=== PATIENT | female | born 1980 | race Caucasian/White ===

== ENCOUNTER 2021-04-22 10:27 | Emergency (ER) | payer MEDICARE, MEDICAID, SELFPAY | END 2021-04-22 11:19 | disposition left against medical advice (07) | PROVIDERS: Emergency Provider Emergency Medicine; PCP Internal Medicine | DX: K59.00 Constipation, unspecified (principal) ==

== ENCOUNTER 2021-04-22 12:07 | Emergency (ER) | payer MEDICARE, MEDICAID, SELFPAY ==
--- NOTE | ~2021-04-22 | CT_ITS ---
EXAMINATION: CT ABDOMEN AND PELVIS WITH CONTRAST CLINICAL INFORMATION: Lower abdominal pain. No bowel movement for 7 days COMPARISON: None TECHNIQUE: Multidetector volumetric images were obtained from the superior aspect of the liver through the pubic symphysis following administration 85 mL of Omnipaque 350 intravenous contrast. Sagittal and coronal reformatted images were obtained on the technologist's workstation. Oral contrast: No This CT examination was performed using dose optimization techniques as appropriate, variously including the following: *Automated exposure control *Adjustment of mA and/or kV according to patient size (this includes techniques or standardized protocols for targeted exams where dose is matched to indication/reason for exam; i.e. extremities or head) *Use of iterative reconstruction technique DLP: 819 mGy-cm FINDINGS: LUNG BASES: The visualized lung bases are unremarkable. LIVER, GALLBLADDER, AND BILIARY TREE: The liver is normal in size, shape, and attenuation. No focal hepatic lesion or biliary ductal dilatation is present. The gallbladder is unremarkable with no evidence of radiopaque gallstones, gallbladder wall thickening, or obvious pericholecystic inflammatory changes. PANCREAS: Unremarkable. SPLEEN: Borderline splenomegaly, measuring 13.4 cm anterior to posterior but only 11.4 cm craniocaudal. ADRENAL GLANDS: Unremarkable. KIDNEYS AND URETERS: The kidneys are normal in size, shape, and attenuation. No hydronephrosis, hydroureter, or calculi seen. No perinephric stranding. BLADDER: Unremarkable. GASTROINTESTINAL TRACT: Stomach and small bowel are nondilated. Normal appendix. Moderate volume of stool in the right colon, left colon, and sigmoid colon. Large rectal stool ball with rectal wall thickening and presacral fluid and fat stranding suggesting fecal impaction and stercoral colitis. ABDOMINAL WALL: Small fat-containing umbilical hernia. LYMPH NODES: Normal. VASCULAR: Unremarkable. PELVIC VISCERA: IUD in the uterus. No adnexal mass. OSSEOUS STRUCTURES: Unremarkable. CT/CT abdomen pelvis w con IMPRESSION: Large rectal stool ball with rectal wall thickening and presacral fluid and fat stranding consistent with fecal impaction and stercoral colitis. Borderline splenomegaly. Fleischner guidelines were followed.
[2021-04-22 14:03] VITALS: BP 126/56; PULSE 85; RESP 18; TEMP 36.2; O2SAT 98; BMI 31.9
--- NOTE | 2021-04-22 15:08 | ED.GENADULT ---
HPI - General Adult General Chief complaint: General Medical Stated complaint: constipation Time Seen by Provider: 04/22/21 14:42 Source: patient Mode of arrival: ambulatory Limitations: no limitations History of Present Illness HPI narrative: 40-year-old female presents for constipation. States she has IBS, and has not had a bowel movement for 7 days. States she has abdominal pain. She has tried to clocks, MiraLax, suppositories, improved use, and she has not been able to have a bowel movement. In the past she has had to be manually disimpacted. No fevers, no nausea, vomiting, diarrhea. Patient sees GI for constipation and IBS abdomen are see hospital. She is vaccinated for COVID. No dysuria, urinary urgency or frequency, no pelvic pain, no pelvic discharge or bleeding. Patient has an IUD and does not get her periods. She is sexually active Patient asked me repeatedly if she can get a work note for today Related Data Previous Rx's Medication Instructions Recorded polyethylene glycol 3350 17 gram 17 g PO BID #100 ea 04/22/21 oral powder packet (Miralax) Allergies Allergy/AdvReac Type Severity Reaction Status Date / Time No Known Allergies Allergy Verified 04/22/21 14:02 [No Known Allergies*] Review of Systems Constitutional: Constitutional: Denies body ache(s), Denies chills, Denies fatigue, Denies fever(s), Denies headache(s), Denies malaise and Denies weakness Eyes: Eyes: Denies diplopia ENT: Denies vertigo, Denies dizziness, Denies otalgia, Denies headache(s), Denies mouth pain, Denies post nasal drip, Denies sinus pain, Denies sinus pressure, Denies sore throat and Denies throat swelling Cardiovascular: Cardiovascular: Denies chest pain, Denies syncope, Denies leg edema, Denies lightheadedness, Denies Loss of Consciousness, Denies palpitations and Denies dyspnea Respiratory: Respiratory: Denies chest congestion, Denies cough and Denies dyspnea Gastrointestinal: Gastrointestinal: Reports abdominal pain, Denies hematochezia, Reports constipation, Denies diarrhea, Denies nausea and Denies vomiting Genitourinary: Genitourinary: Reports no additional female genitourinary complaints Musculoskeletal: Musculoskeletal: Reports no additional musculoskeletal complaints Neurologic: Denies confusion, Denies vertigo, Denies dizziness, Denies syncope, Denies headache(s) and Denies weakness Psychiatric: Psychiatric: Denies anxiety, Denies confusion and Denies depression Endocrine: Endocrine: Denies fatigue and Denies palpitations Allergic/Immunologic: Allergic/Immunologic: Denies throat swelling PMFSH Social History Social History Advance Directives: Yes Advance Directives Information Provided: Yes Advance Directives on File: No Physical Exam Vital Signs: Vital Signs: Last Vital Signs Temp 97.7 F 04/22/21 17:49 Pulse 83 04/22/21 17:49 Resp 20 04/22/21 17:49 BP 115/67 04/22/21 17:49 Pulse Ox 97 04/22/21 17:49 BMI result Body Mass Index 31.9 Const: General: No confusion Nutritional Appearance: well nourished Orientation/consciousness: No confusion Limitations: no limitations Eyes: Conjunctivae: conjunctivae normal Pupils: Equal, round and reactive pupils present EOM: EOMs intact bilaterally Neck: Neck: Yes full ROM, Yes no lymphadenopathy and Yes supple Resp: Effort & Inspection: normal respiratory effort and able to speak in complete sentences Auscultation: clear to auscultation bilaterally, no crackles, no rales, no rhonchi and no wheezes Cardio: Rate: regular rate Rhythm: regular rhythm Heart sounds: S1 normal heart sound present and S2 normal heart sound present GI: Inspection: Yes distended and Yes obesity Palpation (GI): Soft to palpation, Tenderness to palpation present (GI) in the LLQ and in the RLQ and Guarding due to palpation present (GI) in the LLQ and in the RLQ Rectal Exam - Female: visual inspection normal, normal sphincter tone, fecal impaction, No Lesions present (GI), No Anal fissure(s) present and No hemorrhoids Skin: General skin exam: no rashes or lesions noted Neuro: General: No confusion Cranial nerves: Yes Equal, round and reactive pupils present Extrem: General: Yes normal to inspection and Yes full ROM Psych: Appearance: grossly normal Affect: Anxious affect present Attitude: cooperative Thought process: Normal thought process present Course Course Course Narrative: 40-year-old female presents for 7 days of abdominal pain and constipation. No fevers. On exam, patient is stable vitals, she is anxious, she is tender and guarding in her lower abdomen. Will get labs, urine, will CT patient's abdomen to rule out any worsening pathology and evaluate her constipation. Gave morphine, fluids, Zofran Reevaluation(s) Reevaluation #1: Labs are unremarkable, on rectal exam, patient has some stool in her rectal vault. I did a manual disimpaction: Stool is soft, light brown, I am able to remove about 2 tbsp with my finger. Will give lactulose, senna, Fleet enema, re-evaluate Reevaluation #2: And a after senna and lactulose, patient felt she had to have a bowel movement, but was unable to. Patient would like to defer a Fleet enema for now. Reevaluation #3: CT/CT abdomen pelvis w con IMPRESSION: Large rectal stool ball with rectal wall thickening and presacral fluid and fat stranding consistent with fecal impaction and stercoral colitis. ? Borderline splenomegaly.? Discussed with Dr Laboy, suggested to give mag citrate, ducolax, and fleet enema. If she is able to stool, will send home on Miralax Signed pt out to [facility], pending a bowel movement. Medical Decision Making Lab Data Result diagrams: 04/22/21 16:35 04/22/21 16:35 Labs: Lab Results 04/22/21 04/22/21 Range/Units 16:35 16:35 WBC 7.6 (4.8-10.8) X10*3/uL RBC 4.91 (4.20-5.50) X10*6/uL Hgb 14.0 (12.0-16.0) g/dl Hct 42.5 (37.0-47.0) % MCV 86.6 (80.0-98.0) fL MCH 28.5 (27.0-33.0) pg MCHC 32.9 (31.0-35.0) g/dl RDW 12.9 (11.0-16.0) % Plt Count 262 (160-400) X10*3/uL MPV 10.4 (9.4-12.3) fL Immature Gran % (Auto) 0.7 H (0.0-0.4) % Neut % (Auto) 69.9 (45-73) % Lymph % (Auto) 22.4 (20-40) % [place] % (Auto) 5.8 (2-11) % Eos % (Auto) 0.9 (0-4) % Baso % (Auto) 0.3 (0-2) % Lymph # (Auto) 1.7 (1.2-4.9) X10*3/uL [place] # (Auto) 0.4 (0.1-1.2) X10*3/uL Eos # (Auto) 0.1 (0.0-0.4) X10*3/uL Baso # (Auto) 0.0 (0.0-0.2) X10*3/uL Abs Immat Gran (auto) 0.05 H (0.00-0.03) X10*3/uL Absolute Neuts (auto) 5.3 (2.0-8.3) x10*3/uL Absolute Nucleated RBC 0.000 (0.0-0.012) X10*3/uL Nucleated RBC % (auto) 0.0 (0.0-0.2) /100WBC Sodium 139 (135-145) mmol/L Potassium 3.5 (3.3-5.1) mmol/L Chloride 108 (96-108) mmol/L Carbon Dioxide 25 (22-29) mmol/L Anion Gap 10 L (12-20) BUN 10 (9-16) mg/dL Creatinine 0.76 (0.5-1.4) mg/dL Estim Creat Clear Calc 108.3 Estimated GFR > 60 Random Glucose 86 (60-115) mg/dL Calcium 8.9 (8.4-10.2) mg/dL Total Bilirubin 0.6 (0.0-1.0) mg/dL AST 15 (5-31) U/L ALT 17 (0-31) U/L Alkaline Phosphatase 62 (39-117) U/L Total Protein 7.1 (6.5-8.0) g/dL Albumin 4.2 (3.5-5.0) g/dL Lipase 27 (8-78) U/L Beta HCG, Quant < 2 mIU/mL Discharge Plan Discharge Clinical Impression: Constipation, Fecal impaction, Stercoral colitis Patient Disposition: Home, Self-Care Instructions: Constipation (ED), High Fiber Diet (ED), Fecal Impaction (ED), Fleet Enema (ED) Additional Instructions: Call your GI doctor at [facility] on Saturday for follow-up appointment. Take MiraLax twice a day so. You should these having regular bowel movements. If you have worsening constipation, abdominal pain, fevers, nausea, vomiting, diarrhea, please return to the emergency room. Prescriptions: New polyethylene glycol 3350 [Miralax] 17 gram powder in packet 17 g PO BID Qty: 100 RF: 0
[2021-04-22] MEDS: ondansetron HCL 4 MG/2 ML VIAL IVPUSH (15:18)
[2021-04-22] MEDS: Morphine Sulfate 4 MG/ML CARTRIDGE IVPUSH ×2 (15:18→16:37)
[2021-04-22] MEDS: 0.9 % Sodium Chloride 1,000 ML 999 ML IV (15:19)
[2021-04-22 16:38] VITALS: BP 104/52; PULSE 76; RESP 18; O2SAT 98
[2021-04-22 16:40] LABS: MANUAL DIFF FLAG NO
[2021-04-22 16:45] LABS: Basophils Percent Auto 0.3 % (0-2); Eosinophils Absolute Auto 0.1 X10*3/uL (0.0-0.4); Eosinophils Percent Auto 0.9 % (0-4); Hematocrit 42.5 % (37.0-47.0); Imm Gran Abs Auto 0.05 X10*3/uL (0.00-0.03); Imm Gran Pct Auto 0.7 % (0.0-0.4); Lymphocytes Absolute Auto 1.7 X10*3/uL (1.2-4.9); Lymphocytes Percent Auto 22.4 % (20-40); Mean Corpuscular HGB Conc 32.9 g/dl (31.0-35.0); Mean Corpuscular Hemoglobin 28.5 pg (27.0-33.0); Mean Corpuscular Volume 86.6 fL (80.0-98.0); Mean Platelet Volume 10.4 fL (9.4-12.3); Monocytes Absolute Auto 0.4 X10*3/uL (0.1-1.2); Monocytes Percent Auto 5.8 % (2-11); Neutrophils Absolute Auto 5.3 x10*3/uL (2.0-8.3); Neutrophils Percent Auto 69.9 % (45-73); Platelet Count 262 X10*3/uL (160-400); Red Blood Count 4.91 X10*6/uL (4.20-5.50); Red Cell Distribution Width 12.9 % (11.0-16.0); White Blood Count 7.6 X10*3/uL (4.8-10.8)
[2021-04-22 16:55] LABS: Alanine Aminotransferase 17 U/L (0-31); Albumin Level 4.2 g/dL (3.5-5.0); Alkaline Phosphatase 62 U/L (39-117); Anion Gap 10 (12-20); Aspartate Amino Transferase 15 U/L (5-31); Bilirubin Total 0.6 mg/dL (0.0-1.0); Blood Urea Nitrogen 10 mg/dL (9-16); Calcium 8.9 mg/dL (8.4-10.2); Carbon Dioxide 25 mmol/L (22-29); Chloride 108 mmol/L (96-108); Creatinine Clr Calc Pharmacy 108.3; Estimated Glomerular Filt Rate > 60; Glucose Random 86 mg/dL (60-115); Lipase 27 U/L (8-78); Potassium 3.5 mmol/L (3.3-5.1); Sodium 139 mmol/L (135-145); Total Protein 7.1 g/dL (6.5-8.0)
[2021-04-22] MEDS: iohexoL 300 MG/ML 100 ML INFUS..BTL 85 ML IV (17:34)
[2021-04-22 17:49] VITALS: BP 115/67; PULSE 83; RESP 20; TEMP 36.5; O2SAT 97
[2021-04-22] MEDS: Lactulose 20 GM/30 ML SOLUTION 30 GM PO (17:58)
[2021-04-22 18:06] LABS: HCG Quantitative < 2 mIU/mL
[2021-04-22 18:41] LABS: Appearance Urine CLEAR; Color Urine STRAW; Glucose Urine UA NEG (NEG); Leukocyte Esterase Urine NEG (NEG); Nitrite Urine NEG (NEG); Specific Gravity - Urine <= 1.005 (1.005-1.025); Urine Blood NEG (NEG); Urine Ketones 15 MG/DL (NEG); Urine Protein NEG (NEG-TRACE)
[2021-04-22 18:44] LABS: UPreg QC Valid YES; Urine Pregnancy NEGATIVE (NEGATIVE)
[2021-04-22 18:49] LABS: RBC Urine 0 /HPF (0); Squamous Epithelial Cell Urine 2+ /LPF; WBC Urine 0-2 /HPF (0-4)
[2021-04-22 18:51] VITALS: BP 111/64; PULSE 80; RESP 16; O2SAT 98
[2021-04-22] MEDS: bisacodyL 5 MG TABLET.DR 10 MG PO (18:54)
[2021-04-22] MEDS: Magnesium Citrate 300 ML SOLUTION PO (18:55)
[2021-04-22] MEDS: Sodium Phosphate,Mono-Dibasic 133 ML ENEMA PR (19:24)
== END 2021-04-22 20:23 | disposition home or self-care (01) ==
PROVIDERS: Physician Assistant; Emergency Provider Emergency Medicine; PCP Internal Medicine
DX: K59.00 Constipation, unspecified (principal); K52.9 Noninfective gastroenteritis and colitis, unspecified; Z79.899 Other long term (current) drug therapy
CPT/HCPCS: 36415; 74177; 80053; 81001; 81025; 83690; 84702; 85025; 96361; 96374; 96375; 99284; J2270; J2405; Q9967